=== PATIENT | male | born 1955 ===

== ENCOUNTER 2020-10-27 12:01 | Emergency (ER) | payer MEDICARE ==
[~2020-10-27] VITALS: Ht 162.6 cm; Wt 77.0 kg
[~2020-10-27 12:01] MED LIST: B-12100 MCG PO; D31000 UNIT PO; FLEXERIL PO; IBUPROFEN600 MG PO; KEFLEX500 M1 PO; LISINOPRIL20 MG PO; LISINOPRIL5 MG PO; MELOXICAM7.5 MG PO; METFORMIN500 MG PO; ULTRAM50 M1 PO
[2020-10-27 13:05] LABS: HEMATOCRIT 32.3 % (39.0-50.0); HEMOGLOBIN 10.7 g/dl (14.0-18.0); IMMATURE GRANULOCYTES 0.2 % (0.0-5.0); MEAN CELL VOLUME 93.6 fL CALC (80.0-100.0); MEAN CORPUSCULAR HGB CONC 33.1 g/dL CAL (32.0-36.0); NEUT# 3.88 thou/uL (1.82-7.42); RED BLOOD COUNT 3.45 mill/uL (4.70-6.10); RED CELL DISTRI WIDTH 13.8 % (11.5-15.5)
[2020-10-27 13:11] LABS: ALKALINE PHOSPHATASE 59 u/l (38-126); ANION GAP 12 (6-22 (CALC)); BILIRUBIN, TOTAL 0.2 mg/dL (0.0-1.4); BUN 25 mg/dL (8-23); BUN/CREATININE RATIO 21 (12-20 (CALC)); CARBON DIOXIDE 26 mmol/l (22-30); CHLORIDE 104 mmol/l (95-108); CREATININE 1.2 mg/dL (0.7-1.3); GFR > 60 ML/MIN (>=60 (CALC)); GFR FOR AFR.AMER. > 60 ML/MIN (>=60 (CALC)); LIPASE 137 u/l (23-300); POTASSIUM 4.1 mmol/l (3.5-5.1); SGOT/AST 19 u/l (19-48); SODIUM 138 mmol/l (137-146); TOTAL PROTEIN 6.8 g/dL (6.3-8.2)
[2020-10-27 13:12] LABS: ACT PARTIAL THROMBO TIME 25.9 SECONDS (20.0-32.5); PROTHROMBIN TIME 10.1 SECONDS (9.0-12.5)
[2020-10-27 13:17] LABS: ALBUMIN 3.5 g/dL (3.2-5.0)
[2020-10-27 14:04] LABS: URINE BILIRUBIN - DIPSTICK NEGATIVE (NEGATIVE); URINE BLOOD DIPSTICK SMALL (NEGATIVE); URINE COLOR YELLOW; URINE GLUCOSE - DIPSTICK NEGATIVE (NEGATIVE); URINE KETONE NEGATIVE (NEGATIVE); URINE LEUK ESTERASE NEGATIVE (NEGATIVE); URINE PH 5.5 (4.5-8.0); URINE PROTEIN - DIPSTICK 100 mg/dL (NEG-TRACE); URINE SPECIFIC GRAVITY >=1.030; URINE UROBILINOGEN - DIPSTICK 0.2 E.U./dL (0.2)
[2020-10-27 14:07] LABS: URINE NITRITE - DIPSTICK NEGATIVE (Negative)
[2020-10-27 14:08] LABS: URINE MUCUS MODERATE hpf (NONE-FEW); URINE RBC 0-2 RBC/hpf (0-5)
[2020-10-27] MEDS ORDERED: FLEXERIL5 M1 PO (14:15)
[2020-10-27] MEDS ORDERED: HYDROCO/APAP1 TA9 PO (14:15)
[2020-10-27 14:34] VITALS: BP 130/70
== END 2020-10-27 14:34 | disposition home or self-care (01) ==
LOC: ED 12:01
DX: M54.5 Low back pain (principal); R31.29 Other microscopic hematuria; I10 Essential (primary) hypertension

== ENCOUNTER → 2020-11-09 | Outpatient (REF) | payer MEDICARE ==
[~2020-11-09] MED LIST changes: +FLEXERIL5 M1 PO; +HYDROCO/APAP1 TA9 PO
[2020-11-09 08:59] LABS: URINE BILIRUBIN - DIPSTICK NEGATIVE (NEGATIVE); URINE BLOOD DIPSTICK SMALL (NEGATIVE); URINE COLOR YELLOW; URINE GLUCOSE - DIPSTICK NEGATIVE (NEGATIVE); URINE KETONE NEGATIVE (NEGATIVE); URINE LEUK ESTERASE NEGATIVE (Negative); URINE NITRITE - DIPSTICK NEGATIVE (Negative); URINE PROTEIN - DIPSTICK 100 mg/dL (NEG-TRACE); URINE UROBILINOGEN - DIPSTICK 0.2 E.U./dL (0.2)
[2020-11-09 09:03] LABS: HEMATOCRIT 34.1 % (39.0-50.0); HEMOGLOBIN 11.2 g/dl (14.0-18.0); IMMATURE GRANULOCYTES 0.2 % (0.0-5.0); MEAN CELL VOLUME 95.5 fL CALC (80.0-100.0); MEAN CORPUSCULAR HGB 31.4 pG CALC (26.0-32.0); MEAN CORPUSCULAR HGB CONC 32.8 g/dL CAL (32.0-36.0); NEUT# 4.96 thou/uL (1.82-7.42); RED BLOOD COUNT 3.57 mill/uL (4.70-6.10); RED CELL DISTRI WIDTH 13.2 % (11.5-15.5)
[2020-11-09 09:07] LABS: URINE CLARITY SL CLOUDY; URINE RBC 0-2 RBC/hpf (0-5)
[2020-11-09 09:08] LABS: URINE EPITHELIAL CELLS FEW EPI/hpf (0-FEW); URINE MUCUS FEW hpf (NONE-FEW)
[2020-11-09 10:47] LABS: ALBUMIN 3.6 g/dL (3.2-5.0); ALKALINE PHOSPHATASE 57 u/l (38-126); ANION GAP 13 (6-22 (CALC)); BILIRUBIN, TOTAL 0.2 mg/dL (0.0-1.4); BUN 24 mg/dL (8-23); BUN/CREATININE RATIO 22 (12-20 (CALC)); C-REACTIVE PROTEIN 0.7 mg/dL (0-0.9); CARBON DIOXIDE 28 mmol/l (22-30); CHLORIDE 102 mmol/l (95-108); CREATININE 1.1 mg/dL (0.7-1.3); GFR > 60 ML/MIN (>=60 (CALC)); GFR FOR AFR.AMER. > 60 ML/MIN (>=60 (CALC)); POTASSIUM 3.9 mmol/l (3.5-5.1); SGOT/AST 17 u/l (19-48); SODIUM 139 mmol/l (137-146); TOTAL PROTEIN 6.9 g/dL (6.3-8.2)
== END | disposition home or self-care (01) ==
LOC: LAB 08:17
PROVIDERS: ATTEND Internal Medicine Rheumatology
DX: M79.7 Fibromyalgia (principal); M06.4 Inflammatory polyarthropathy; J30.1 Allergic rhinitis due to pollen; E55.9 Vitamin D deficiency, unspecified; F51.01 Primary insomnia; M32.10 Systemic lupus erythematosus, organ or system involvement unspecified

== ENCOUNTER 2021-06-05 08:30 | Day surgery (SDC) | payer MEDICARE ==
[~2021-06-05] VITALS: Ht 167.6 cm; Wt 88.5 kg
[~2021-06-05 08:30] MED LIST changes: +LOSARTAN POTASS25 MG PO; +OMEPRAZOLE DR40 MG PO; +TAMSULOSIN HCL0.4 MG PO
[2021-06-05 10:29] VITALS: BP 150/70
== END 2021-06-05 10:49 | disposition home or self-care (01) ==
LOC: ENDO 08:30 → ORM 09:30 → ENDO 09:30 → ORM 11:05
PROVIDERS: ATTEND Surgery
PROC: 0DJD8ZZ Inspection of Lower Intestinal Tract, Via Natural or Artificial Opening Endoscopic (ICD-10-PCS; principal; 2021-06-05)
PROC: 0DJ08ZZ Inspection of Upper Intestinal Tract, Via Natural or Artificial Opening Endoscopic (ICD-10-PCS; 2021-06-05)
DX: Z12.11 Encounter for screening for malignant neoplasm of colon (principal); K57.30 Diverticulosis of large intestine without perforation or abscess without bleeding; K64.8 Other hemorrhoids; K29.70 Gastritis, unspecified, without bleeding; I10 Essential (primary) hypertension; K21.9 Gastro-esophageal reflux disease without esophagitis; Z87.11 Personal history of peptic ulcer disease
CPT/HCPCS: 43235; G0121